=== PATIENT | female | born 1980 | race Caucasian/White ===

== ENCOUNTER 2021-03-04 11:03 | Emergency (ER) | payer BC, SELFPAY ==
--- NOTE | 2021-03-04 11:05 | ED.ANXIETY ---
HPI - Anxiety General Chief Complaint: Anxiety Stated Complaint: Anxiety Time Seen by Provider: 03/04/21 11:05 Source: patient and RN notes reviewed History of Present Illness HPI narrative: Patient is a 41-year-old female who presents the urgent care with complaints of anxiety and depression. Patient states she has been treated for anxiety and depression for the last 8 years and she recently moved into town. Patient states that she was on Celexa and she was changed to Cymbalta approximately 1 month ago. Patient states that she was seeing Dr. Long and he is refusing to refill her Cymbalta because she missed her follow-up appointment . Patient states that she has an appointment with a psychiatrist in mid March and would like to change her PCP. Patient is very tearful and appears very anxious and has been out of her Cymbalta for approximately 3 days. Patient states she had 10 Ativan and has been taking them daily for her breakthrough anxiety. Patient states that her is currently out of town and her anxiety has enhanced. Denies of any thoughts of harming herself or others. No other acute complaints. Patient aware of the plan of care. Some parts of this dictation were generated by voice recognition software and may contain typographical and/or grammatical inaccuracies. Related Data Home Medications Medication Instructions Recorded Confirmed Ativan 03/04/21 duloxetine [Cymbalta] 60 mg PO DAILY 03/04/21 03/04/21 Allergies Allergy/AdvReac Type Severity Reaction Status Date / Time No Known Allergies Allergy Verified 03/04/21 11:17 Review of Systems Review of Systems: CONSTITUTIONAL: Denies fever, chills, or sweats. EYES: Denies visual changes, redness, or discharge. ENT: Denies rhinorrhea, congestion, sore throat, or otalgia. CARDIOVASCULAR: Denies chest pain, palpitations, or edema. RESPIRATORY: Denies cough or dyspnea. GASTROINTESTINAL: Denies abdominal pain, nausea, vomiting, or diarrhea. GENITOURINARY: Denies dysuria or hematuria. SKIN: Denies rash or itching. MUSCULOSKELETAL: Denies back pain, joint pain, or myalgia. NEUROLOGIC: Denies headache, numbness, or weakness. PSYCHIATRIC: Reports of anxiety and depression All other systems reviewed are negative, except as documented in HPI. PMFSH Comments At the time of my signature, I reviewed and agree with the nursing past medical, surgical, social, and family history. There is no relevant family history pertinent to the patient complaint. Exam Narrative: GENERAL: This is a well-nourished, well-developed patient. Tearful and anxious HEAD: normocephalic, atraumatic. EYES: PERRL. Sclera clear/white. Vision is grossly intact. EARS: External ears normal NOSE: External nose normal with no obvious nasal discharge, nares without redness, no rhinorrhea. THROAT: Mucous membranes moist NECK: Neck supple CARDIOVASCULAR: Regular rate and rhythm without murmurs, gallops, or rubs. RESPIRATORY: Clear to auscultation. Breath sounds equal bilaterally. No wheezes, rales, or rhonchi. SKIN: warm, intact with no suspicious lesions or rash, good texture and turgor. NEURO: awake, alert, and oriented to person, place and time. There were no obvious focal neurologic abnormalities. EXTREMITIES: No clubbing, cyanosis, or edema. Course Vital Signs Vital signs: Vital Signs Temperature 99.0 F 03/04/21 11:12 Pulse Rate 134 H 03/04/21 11:12 Respiratory Rate 16 03/04/21 11:12 Blood Pressure 158/118 H 03/04/21 11:12 Pulse Oximetry 100 03/04/21 11:12 Temperature 99.0 F 03/04/21 11:12 Pulse Rate 134 H 03/04/21 11:12 Respiratory Rate 16 03/04/21 11:12 Blood Pressure 158/118 H 03/04/21 11:12 Pulse Oximetry 100 03/04/21 11:12 Reviewed-patient is informed that they may have pre-hypertension or hypertension based on a blood pressure reading in the department. I recommend the patient call the primary care provider listed on their discharge instructions or a
[2021-03-04 11:12] VITALS: BP 158/118; PULSE 134; RESP 16; TEMP 37.2; O2SAT 100
== END 2021-03-04 11:29 | disposition home or self-care (01) ==
PROVIDERS: Emergency Provider Nurse Practitioner Family; PCP Emergency Medicine
DX: F41.9 Anxiety disorder, unspecified (principal); F32.A Depression, unspecified
CPT/HCPCS: 99213; G0463